=== PATIENT | male | born 1960 | race Caucasian/White ===

== ENCOUNTER → 2020-09-09 | Outpatient (CLI) | payer BC ==
--- NOTE | 2020-09-09 14:52 | MR ---
EXAMINATION TYPE: MR cervical spine wo con DATE OF EXAM: 09/09/2020 COMPARISON: None HISTORY: Neck pain into left arm and fingers Multiplanar multiecho imaging of the cervical spine was performed with no contrast. Vertebra have normal alignment. There is a moderate-sized posterior disc herniation at C6-7 with elev ation of the posterior longitudinal ligament. There is small posterior disc herniation at C5-6. There is some flattening of the cervical spinal cord and posterior displacement. The spinal canal measures 6.5 mm at C6-7. There is no evidence of cord edema. Brainstem is intact. There is no evidence of a fracture. I see no focal bone destruction. There is left side C5-6 neural foraminal impingement. 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 There is mild C6-7 spinal stenosis. There is a small posterior disc bulge at C5-6 without significant impingement on the cord. There is left side C5-6 neural foraminal impingement and stenosis due to uncovertebral spurring and d isc bulging.
== END | disposition home or self-care (01) ==
LOC: RADMRIMAIN 13:32
PROVIDERS: ATTEND Family Medicine
DX: M48.02 Spinal stenosis, cervical region (principal); M50.122 Cervical disc disorder at C5-C6 level with radiculopathy
CPT/HCPCS: 72141